=== PATIENT | female | born 1975 | race Caucasian/White ===

== ENCOUNTER → 2016-10-22 | Outpatient (CLI) | payer MEDICARE, OTHER ==
--- NOTE | 2016-10-25 09:43 | MM ---
Reason for exam: screening (asymptomatic). Baseline mammogram. History: Patient history of other cancer and is nulliparous. Physical Findings: Nurse did not find any significant physical abnormalities on exam. MG 3D Screening Mammo W/Cad Bilateral CC and MLO view(s) were taken. There are scattered fibroglandular densities. Finding: There are typically benign skin calcifications in both breasts. ASSESSMENT: Benign, BI-RAD 2 RECOMMENDATION: Routine screening mammogram of both breasts in 1 year.
== END | disposition home or self-care (01) ==
LOC: RADMAMWWP 15:02
PROVIDERS: ATTEND Internal Medicine
DX: Z12.31 Encounter for screening mammogram for malignant neoplasm of breast (principal)
CPT/HCPCS: 77063; G0202

== ENCOUNTER → 2017-03-18 | Outpatient (CLI) | payer MEDICARE, OTHER ==
--- NOTE | 2017-03-18 18:05 | US ---
EXAMINATION TYPE: US transvaginal DATE OF EXAM: 03/18/2017 COMPARISON: NONE CLINICAL HISTORY: N93.8 other spec abnorm vaginal bleeding. TECHNIQUE: Transvaginal (TV) Date of LMP: 02/26/2017 EXAM MEASUREMENTS: Uterus: 9.5 x 5.0 x 6.5 cm Endometrial Stripe: 1.3 cm Right Ovary: 2.4 x 2.2 x 1.3 cm Left Ovary: 3.0 x 1.8 x 1.9 cm 1. Uterus: Anteverted small hypoechoic area right lower measures 1.0 x 0.7 x 0.8 cm. 2. Endometrium: wnl 3. Right Ovary: wnl 4. Left Ovary: wnl 5. Bilateral Adnexa: wnl 6. Posterior cul-de-sac: no free fluid IMPRESSION: Negative transvaginal pelvic sonogram. No adnexal mass or free fluid. Normal endometrium.
== END | disposition home or self-care (01) ==
LOC: RADUSWWP 16:31
PROVIDERS: ATTEND Internal Medicine
DX: N93.8 Other specified abnormal uterine and vaginal bleeding (principal)
CPT/HCPCS: 76830

== ENCOUNTER → 2017-04-13 | Outpatient (CLI) | payer MEDICARE, OTHER ==
--- NOTE | 2017-04-14 08:48 | WWHP ---
DATE OF SERVICE: 04/13/17 CHIEF COMPLAINT: The patient is here for her routine gynecological exam and mammogram. HISTORY OF PRESENT ILLNESS: This is a 41-year-old G0, with an LMP of 03/27/17. The patient states it has been more than ten years since her last pelvic exam. She states here periods are regular every month but they have been progressively getting heavier especially over the last two years. They have gotten so heavy that she believes she has become anemic because of the bleeding. She states her periods are typically every 24 to 29 days and can last from 7 to 9 days. She states all but 2 days are very heavy. On heavy days , she can have to change her tampon up to every 15 minutes. She states they are also very crampy. She does not use anything for control. She does have history of infertility after 13 years of attempting . She did not undergo any treatment and is no longer interested in getting . PAST MEDICAL HISTORY: Anemia, gastroesophageal reflux disease, Type 2 diabetes. Elevated cholesterol. Chronic back problems. Degenerative disc disease. Fibromyalgia, chronic hypertension, obesity, migraine headaches, history of osteomyelitis and stenosis of the spine. Medications: 1. Famotidine 20 mg b.i.d. 2. Klor-Con 20 meq daily. 3. Furosemide 40 mg daily. 4. Metformin 1000 mg b.i.d. 5. Simvastatin 20 mg daily. 6. Tiazepam 5 mg b.i.d. prn. 7. Oxycodone 325/5 mg two tablets q.i.d. prn. 8. Clindamycin 300 mg q6 hours. Also over the counter medications include: 1. Vitamin D3 2000 mg daily. 2. Vitamin C 1000 mg daily. 3. Vitamin B complex daily. 4. Evening [place] oil 1000 mg daily. 5. Fish oil supplement 1200 mg daily. 6. Claritin 10 mg daily. 7. Slow FE iron supplement one daily. ALLERGIES: ASPIRIN, N-SAIDS, PENICILLIN, JACK INHIBITORS, KEFLEX, BIAXIN, BACTRIM , LATEX AND OTHER TYPES OF BLOOD PRESSURE MEDICATIONS. PAST SURGICAL HISTORY: Bone marrow biopsy as a child. 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 She also has heavy periods as above. She has no history of STDs. SOCIAL HISTORY: She admits to smoking one pack of cigarettes per day but denies alcohol and drug use. She is single but has been with her boyfriend for 23 years and lives with him. She is considered disabled. FAMILY HISTORY: Mother and grandmother have diabetes. She denies family history of cancer of the breast, uterus, ovaries or colon. REVIEW OF SYSTEMS: Weight has fluctuated and she has gained approximately 40 pounds over the last year. She denies respiratory, cardiac problems. GI: Occasional stomach upset on the Clindamycin which she is currently taking. PHYSICAL EXAM: Blood pressure 127/62. Height 5 feet 4 inches, weight 291 pounds. Temperature 96.2. Pulse 87. This is a well developed, obese white female who is alert and oriented times three in no acute distress. HEENT: is within normal limits. Neck is supple without mass or thyromegaly. Chest and lungs clear to auscultation. Heart is regular rate and rhythm. Breasts: without mass or discharge. Axillary exam is negative for adenopathy. Back negative for CVA tenderness. Abdomen is obese, soft and nontender without palpable masses. Pelvic exam, normal external genitalia. Cervix and vagina appears normal. There is no unusual discharge. There is no evidence of prolapse. The uterus is mid position, nongravid size and nontender. There are no palpable adnexal masses or tenderness. Bimanual examination is somewhat limited secondary to her size. Rectal exam refused by the patient. Extremities nontender. IMPRESSION: 1. A 41 year old premenopausal female with hypermenorrhea consisting of menses lasting 7 to 9 days with very heavy flow. 2. History of anemia possibly secondary to her hypermenorrhea. 3. Multiple medical problem. PLAN: 1. Pap smear was performed. 2. Self breast examination was discussed. 3. Mammogram was done 10/22/16 and was benign. She will plan on repeating this in one year. 4. The patient also had a pelvic ultrasound on 03/18/17 which was unremarkable. 5. We had a long discussion regarding options for her hypermenorrhea. We discussed medications including oral contraception, Meclofenamate sodium and Tranexamic acid. With her multiple medical problems, I do not think she is a good candidate for tranexamic acid or control pills because of the possible increase for blood clots. Because of her allergies for NSAID type medications, I do not feel she is a good candidate for Meclofenamate sodium. She states she had some type of anaphylactic reaction with NSAIDS. We have also discussed other options including Mirena IUD, endometrial ablation and hysterectomy. The ACOG frequently asked questions hand outs were given to the patient on heavy menstrual bleeding and the endometrial ablation procedure. All of her questions have been answered. She is considering the endometrial ablation. We have discussed how this would not be used as a control method and would be dangerous if she were to get after the procedure. 6. After she reviews the material, she will let me know if she is interested in the endometrial ablation or other type of treatment. If she desires endometrial ablation, she will be referred to a local media account executive for this. 7. She will return in one year and prn. 8. She will also keep a menstrual calender. MTDD
== END | disposition home or self-care (01) ==
LOC: WWCWWP 11:09
PROVIDERS: ATTEND Obstetrics & Gynecology
DX: Z01.419 Encounter for gynecological examination (general) (routine) without abnormal findings (principal)

== ENCOUNTER → 2017-06-03 | Outpatient (CLI) | payer MEDICARE, OTHER ==
[2017-06-03 16:28] LABS: Basophils # (A) 0.1 k/uL (0-0.2); Basophils % (A) 1 %; CH 26.5; CHCM 31.8; Eosinophils # (A) 0.3 k/uL (0-0.7); Eosinophils % (A) 3 %; HCT 39.4 % (34.0-46.0); HDW 2.87; HGB 12.4 gm/dL (11.4-16.0); Hypochromasia Slight; Luc % (Auto) 1; Lymphocytes # (A) 2.2 k/uL (1.0-4.8); Lymphocytes % (A) 24 %; MCH 26.4 pg (25.0-35.0); MCHC 31.5 g/dL (31.0-37.0); MCV 83.8 fL (80.0-100.0); Mean Platelet Volume 7.7; Monocytes # (A) 0.5 k/uL (0-1.0); Monocytes % (A) 5 %; Neutrophils # (A) 6.2 k/uL (1.3-7.7); Neutrophils % (A) 67 %; RDW 15.3 % (11.5-15.5); WBC 9.4 k/uL (3.8-10.6); WBC (Perox) 9.01
== END | disposition home or self-care (01) ==
LOC: LABWHC1 16:08
PROVIDERS: ATTEND Obstetrics & Gynecology Obstetrics
DX: Z01.812 Encounter for preprocedural laboratory examination (principal); D64.9 Anemia, unspecified; N92.0 Excessive and frequent menstruation with regular cycle
CPT/HCPCS: 36415; 85025

== ENCOUNTER 2017-06-21 08:30 | Day surgery (SDC) | payer MEDICARE, OTHER ==
[2017-06-15 14:02] VITALS: BMI 46.3
[~2017-06-21 08:30] MED LIST: LACTATED RINGERS 1,000 ML IV SCH; Pre Op ABX Message 1 EACH MISC MISCELLANE ONE
[2017-06-21] MEDS ORDERED: LIDOCAINE 1% 20 ML VIAL (10MG/ML) FOR IV START INTRADERMA ONE (09:09)
[2017-06-21] MEDS: ONDANSETRON 4 MG/2 ML VIAL IVP PRN ×2 (09:10→10:20)
[2017-06-21 09:16] LABS: Glucose,Whole Blood 145 mg/dL (75-99)
[2017-06-21] MEDS ORDERED: ACETAMINOPHEN PO PRN (09:29)
[2017-06-21] MEDS ORDERED: Acetaminophen-Codeine 300-30mg TAB PO PRN ×2 (09:29)
[2017-06-21] MEDS ORDERED: OXYCODONE HCL PO PRN (09:29)
[2017-06-21] MEDS ORDERED: PYRIDOXINE 50 MG PO SCH (09:30)
[2017-06-21] MEDS ORDERED: KETOROLAC 30 MG/ML 1 ML VIAL ONE (09:31)
[2017-06-21] MEDS ORDERED: PROPOFOL 10 MG/ML 20 ML VIAL IV ONE (09:31)
[2017-06-21] MEDS ORDERED: SUCCINYLCHOLINE CHLORIDE 100 MG/5 ML SYR IV ONE (09:31)
[2017-06-21] MEDS ORDERED: fentaNYL (PF) 50 MCG/ML 2 ML AMP ONE (09:31)
[2017-06-21] MEDS ORDERED: GLYCOPYRROLATE 0.2 MG/ML 2 ML VIAL ONE (09:31)
[2017-06-21] MEDS ORDERED: LIDOCAINE 1% INJ 10MG/ML (20 ML MDV) ONE (09:31)
[2017-06-21] MEDS ORDERED: MIDAZOLAM 2 MG/2 ML VIAL ONE (09:31)
--- NOTE | 2017-06-21 10:05 | P.OP ---
Date of Procedure: 06/21/17 Preoperative Diagnosis: Menorrhagia, anemia Postoperative Diagnosis: Same Procedure(s) Performed: Hysteroscopy, dilation and curettage, endometrial ablation, NovaSure Anesthesia: ABHAYA Surgeon: Tiffanie Conklin Estimated Blood Loss (ml): 10 IV fluids (ml): 300 Urine output (ml): 25 Pathology: other (Endometrial curettings) Condition: stable Disposition: PACU Indications for Procedure: Heavy menstrual bleeding, anemia Operative Findings: Normal appearing endometrial cavity, proliferative endometrium noted Description of Procedure: Where general anesthesia was obtained without difficulty by the anesthesia department. She was prepped and draped in the normal sterile fashion in the dorsal lithotomy position. With her catheter was then used to drain the bladder of clear yellow urine. A weighted speculum was placed in the posterior vaginal vault and the anterior lip of the cervix was visualized and grasped with a single-tooth tenaculum. The endocervical canal was then dilated to approximately 18-Colombian. Uterine sound was used to obtain a uterine length of 10 cm. The hysteroscope was then placed through the cervical os towards endometrial cavity the above-noted findings were visualized. A sharp curettage was then performed until gritty texture was noted in all 4 quadrants of the endometrial cavity. This was then sent off to pathology for analysis. The endometrial device NovaSure was then opened and operated according to rn charge's instruction. A uterine length of 6 with a 4.5 power of 149 for 60 seconds was noted after the cavity assessment was passed without difficulty. After the cycle but device was removed without difficulty. The double-tooth tenaculum was removed from the anterior lip of the cervix hemostasis was appreciated. Next Patient tolerated procedure well, all counts were correct x 2, PATIENT WAS TAKEN TO THE RECOVERY ROOM AWAKE AND IN STABLE CONDITION
[2017-06-21 10:21] VITALS: TEMP 97.8
[2017-06-21] MEDS: HYDROmorphone 0.5 MG/0.5 ML SYRINGE IVP PRN ×4 (10:25→10:56)
[2017-06-21 13:12] VITALS: RESP 16
[2017-06-21 13:13] VITALS: BP 144/84; PULSE 85
[2017-06-21] MEDS ORDERED: FAMOTIDINE 20 MG PO SCH (21:00)
[2017-06-21] MEDS ORDERED: DIAZEPAM 5 MG PO SCH (21:00)
[2017-06-21] MEDS ORDERED: DOXYCYCLINE 50 MG PO SCH (21:00)
[2017-06-21] MEDS ORDERED: NON-FORMULARY DRUG (Metformin Hcl [Metformin Hcl] 1,000 MG) PO SCH (21:00)
[2017-06-22] MEDS ORDERED: FUROSEMIDE 40 MG PO SCH (09:00)
[2017-06-22] MEDS ORDERED: POTASSIUM CHLORIDE 20 MEQ PO SCH (09:00)
[2017-06-22] MEDS ORDERED: ASCORBIC ACID 500 MG PO SCH (09:00)
[2017-06-22] MEDS ORDERED: EPA PO SCH (09:00)
[2017-06-22] MEDS ORDERED: CHOLECALCIFEROL 1000 UNIT PO SCH (09:00)
[2017-06-22] MEDS ORDERED: FISH OIL PO SCH (09:00)
[2017-06-22] MEDS ORDERED: EVENING PRIMROSE OIL 500 MG PO SCH (09:00)
[2017-06-22] MEDS ORDERED: NON-FORMULARY DRUG (Simvastatin [Simvastatin] 40 MG) PO SCH (09:00)
[2017-06-22] MEDS ORDERED: DHA PO SCH (09:00)
[2017-06-22] MEDS ORDERED: LORATADINE 5 MG PO SCH (09:00)
[2017-06-22] MEDS ORDERED: OMEGA PO SCH (09:00)
== END 2017-06-21 13:17 | disposition home or self-care (01) ==
LOC: OR 08:30
PROVIDERS: ATTEND Obstetrics & Gynecology Obstetrics
DX: N92.0 Excessive and frequent menstruation with regular cycle (principal); N85.8 Other specified noninflammatory disorders of uterus; I10 Essential (primary) hypertension; E78.5 Hyperlipidemia, unspecified; D64.9 Anemia, unspecified; K21.9 Gastro-esophageal reflux disease without esophagitis; E11.9 Type 2 diabetes mellitus without complications; F17.200 Nicotine dependence, unspecified, uncomplicated; Z79.84 Long term (current) use of oral hypoglycemic drugs; Z79.899 Other long term (current) drug therapy; Z88.0 Allergy status to penicillin; Z88.2 Allergy status to sulfonamides; Z88.8 Allergy status to other drugs, medicaments and biological substances; Z88.6 Allergy status to analgesic agent; Z88.1 Allergy status to other antibiotic agents; Z91.040 Latex allergy status; Z83.3 Family history of diabetes mellitus
CPT/HCPCS: 58563; 81025; 88305; J2250; J2405; J2001; J3010; J1885; J0330; J2704; J1170

== ENCOUNTER → 2018-02-28 | Outpatient (CLI) | payer MEDICARE, OTHER ==
[2018-03-01 02:21] LABS: Urine Alcohol Negative (Negative); Urine Barbiturate Negative (Negative); Urine Cocaine Negative (Negative); Urine Methadone Negative (Negative); Urine Opiates Negative (Negative); Urine Phencyclidine Negative (Negative)
== END | disposition home or self-care (01) ==
LOC: LABMAIN 17:46
PROVIDERS: ATTEND Internal Medicine
DX: F11.20 Opioid dependence, uncomplicated (principal)
CPT/HCPCS: 80306

== ENCOUNTER → 2018-11-20 | Outpatient (CLI) | payer MEDICARE, OTHER ==
[2018-11-20 16:48] LABS: HCT 45.3 % (34.0-46.0); HGB 14.6 gm/dL (11.4-16.0); MCH 28.1 pg (25.0-35.0); MCHC 32.2 g/dL (31.0-37.0); MCV 87.3 fL (80.0-100.0); Mean Platelet Volume 7.5; Platelet Count 308 k/uL (150-450); RDW 13.9 % (11.5-15.5); WBC 8.7 k/uL (3.8-10.6)
[2018-11-20 16:57] LABS: Anion Gap 11 mmol/L; Blood Urea Nitrogen 14 mg/dL (7-17); Calcium 9.6 mg/dL (8.4-10.2); Carbon Dioxide 29 mmol/L (22-30); Chloride 98 mmol/L (98-107); Glucose 295 mg/dL (74-99); Magnesium 1.7 mg/dL (1.6-2.3); Potassium 4.5 mmol/L (3.5-5.1); Sodium 138 mmol/L (137-145)
[2018-11-21 01:25] LABS: Hemoglobin A1C 9.4 % (4.0-6.0)
--- NOTE | 2018-11-21 13:48 | MM ---
Reason for exam: screening (asymptomatic). Last mammogram was performed 2 years and 1 month ago. History: Patient is postmenopausal, history of other cancer, and is nulliparous. Taking estrogen. Taking progesterone. Physical Findings: A clinical breast exam by your physician is recommended on an annual basis and results should be correlated with mammographic findings. MG 3D Screening Mammo W/Cad Bilateral CC and MLO view(s) were taken. Prior study comparison: October 22, 2016, bilateral MG 3d screening mammo w/cad. Benign appearing bilateral calcifications. No significant changes when compared with prior studies. ASSESSMENT: Benign, BI-RAD 2 RECOMMENDATION: Routine screening mammogram of both breasts in 1 year.
== END | disposition home or self-care (01) ==
LOC: RADMAMWWP 15:39
PROVIDERS: ATTEND Internal Medicine
DX: Z12.31 Encounter for screening mammogram for malignant neoplasm of breast (principal); E55.9 Vitamin D deficiency, unspecified; E78.5 Hyperlipidemia, unspecified; R53.83 Other fatigue; E11.42 Type 2 diabetes mellitus with diabetic polyneuropathy; K21.9 Gastro-esophageal reflux disease without esophagitis; I10 Essential (primary) hypertension
CPT/HCPCS: 36415; 77063; 77067; 80048; 82043; 82570; 83036; 83540; 83550; 83735; 84439; 84443; 85027

== ENCOUNTER → 2018-12-20 | Outpatient (CLI) | payer MEDICARE, OTHER ==
--- NOTE | 2018-12-21 12:02 | NM ---
EXAMINATION TYPE: NM hepatobiliary w EF DATE OF EXAM: 12/20/2018 COMPARISON: NONE HISTORY: Nausea and vomiting TECHNIQUE: After the intravenous administration of 4.7 mCi Tc 99m Mebrofenin hepatobiliary scintigrap hy is performed. Immediate images post injection. FINDINGS: There is satisfactory initial accumulation of tracer by the liver. The gallbladder is visualized wit hin 8 minutes. The small bowel activity is noted within 6 minutes. At one hour 8 ounces of oral ens ure plus is given to mimic CCK and gallbladder ejection fraction is calculated at 79 %, in the normal range. Therefore there is no scintigraphic evidence of cystic or common bile duct obstruction to reynoso ggest acute cholecystitis or gallbladder dyskinesia. IMPRESSION: Exam is within normal limits.
== END | disposition home or self-care (01) ==
LOC: RADNMMAIN 14:43
PROVIDERS: ATTEND Internal Medicine
DX: R10.84 Generalized abdominal pain (principal)
CPT/HCPCS: 78226; A9537

== ENCOUNTER → 2020-05-28 | Outpatient (CLI) | payer MEDICARE, OTHER ==
--- NOTE | 2020-05-29 14:48 | MM ---
Reason for exam: screening (asymptomatic). Last mammogram was performed 1 year and 6 months ago. History: Patient is postmenopausal, history of other cancer, and is nulliparous. Taking estrogen. Taking progesterone. Physical Findings: A clinical breast exam by your physician is recommended on an annual basis and results should be correlated with mammographic findings. MG 3D Screening Mammo W/Cad Bilateral CC and MLO view(s) were taken. Prior study comparison: November 20, 2018, bilateral MG 3d screening mammo w/cad. October 22, 2016, bilateral MG 3d screening mammo w/cad. There are scattered fibroglandular densities. Stable benign calcifications. There is no discrete abnormality. No significant changes when compared with prior studies. ASSESSMENT: Benign, BI-RAD 2 RECOMMENDATION: Routine screening mammogram of both breasts in 1 year.
== END | disposition home or self-care (01) ==
LOC: RADMAMWWP 15:42
PROVIDERS: ATTEND Nurse Practitioner Adult Health
DX: Z12.31 Encounter for screening mammogram for malignant neoplasm of breast (principal)
CPT/HCPCS: 77063; 77067

== ENCOUNTER → 2020-08-14 | Outpatient (CLI) | payer MEDICARE, OTHER | END | disposition home or self-care (01) | LOC: LABWHC1 16:16 | PROVIDERS: ATTEND Nurse Practitioner Adult Health | DX: J06.9 Acute upper respiratory infection, unspecified (principal) ==

== ENCOUNTER 2020-10-08 15:40 | Emergency (ER) | payer MEDICARE, OTHER ==
[2020-10-08 15:46] VITALS: TEMP 98.4
--- NOTE | 2020-10-08 16:15 | ED ---
General Adult HPI - General Chief complaint: Extremity Problem,Nontraumatic Stated complaint: body swelling Time Seen by Provider: 10/08/20 15:52 Source: patient, RN notes reviewed, old records reviewed Mode of arrival: ambulatory Limitations: no limitations - History of Present Illness Initial comments: 44-year-old female presenting for generalized swelling, lower extremity swelling. Symptoms have progressed, she typically is on Lasix 40 mg to take 80 mg of Lasix today with some improvement. She's had increased urine output after her dose of Lasix today. She has no history of heart failure. She does use Lasix both for peripheral edema and hypertension. She's had no other antihypertensive medications. She does state that she feels puffy in both her face and her hands as well. No chest pain, no dyspnea, no fever. - Related Data Home Medications Medication Instructions Recorded Confirmed Furosemide [Lasix] 80 mg PO DAILY 06/15/17 10/08/20 Loratadine [Claritin] 10 mg PO DAILY 06/15/17 10/08/20 Potassium Chloride [Klor-Con 20] 20 meq PO DAILY 06/15/17 10/08/20 Simvastatin 40 mg PO HS 06/15/17 10/08/20 Cholecalciferol [Vitamin D3 (25 125 mcg PO AC-SUPPER 10/08/20 10/08/20 Mcg = 1000 Iu)] Diazepam [Valium] 10 mg PO TID PRN 10/08/20 10/08/20 Femhrt 0.5-2.5mg 1 tab PO HS 10/08/20 10/08/20 Gabapentin 300 mg PO TID 10/08/20 10/08/20 Levothyroxine Sodium [Synthroid] 50 mcg PO DAILY 10/08/20 10/08/20 [place]-3 Fatty Acids/Fish Oil [Fish 1 cap PO AC-SUPPER 10/08/20 10/08/20 Oil 1,000 mg Softgel] Ubidecarenone [Co Q-10] 400 mg PO AC-SUPPER 10/08/20 10/08/20 glipiZIDE XL [Glucotrol Xl] 10 mg PO AC-SUPPER 10/08/20 10/08/20 oxyCODONE-APAP 10-325MG [Percocet 1 tab PO QID PRN 01/27/21 01/27/21 10-325 mg] sitaGLIPtin PHOS/metFORMIN HCL 1 tab PO BID 10/08/20 10/08/20 [Janumet Xr 100-1,000 mg Tablet] Allergies Allergy/AdvReac Type Severity Reaction Status Date / Time JACK Inhibitors Allergy Anaphylaxis Verified 10/08/20 16:37 aspirin Allergy Rash/Hives Verified 10/08/20 16:37 cephalexin [From Keflex] Allergy Rapid Verified 10/08/20 16:37 Heart Rate clarithromycin [From Biaxin] Allergy Rash/Hives Verified 10/08/20 16:37 latex Allergy Rash/Hives Verified 10/08/20 16:37 Penicillins Allergy Rash/Hives Verified 10/08/20 16:37 Review of Systems ROS Statement: Those systems with pertinent positive or pertinent negative responses have been documented in the HPI. ROS Other: All systems not noted in ROS Statement are negative. Past Medical History Past Medical History: Diabetes Mellitus, Fibromyalgia, GERD/Reflux, Hyperlipidemia, Hypertension, Osteoarthritis (OA) Additional Past Medical History / Comment(s): DDD, Osteomyelitis & hx. of Migraines. Has a cold and is taking antbx. currently for this. History of Any Multi-Drug Resistant Organisms: None Reported Past Surgical History: Orthopedic Surgery Additional Past Surgical History / Comment(s): L leg surgery. Past Anesthesia/Blood Transfusion Reactions: Postoperative Nausea & Vomiting (PONV) Additional Past Anesthesia/Blood Transfusion Reaction / Comment(s): Hard to wake up. Past Psychological History: No Psychological Hx Reported Smoking Status: Current every day smoker Past Alcohol Use History: None Reported Past Drug Use History: Marijuana - Past Family History Mother Family Medical History: No Reported History General Exam Limitations: no limitations General appearance: alert, in no apparent distress Head exam: Present: atraumatic, normocephalic Eye exam: Present: normal appearance, PERRL ENT exam: Present: normal exam Neck exam: Present: normal inspection. Absent: tenderness, meningismus Respiratory exam: Present: normal lung sounds bilaterally. Absent: respiratory distress, wheezes, rales Cardiovascular Exam: Present: regular rate, normal rhythm GI/Abdominal exam: Present: soft. Absent: distended, tenderness, guarding Extremities exam: Present: pedal edema, calf tenderness (Patient has bilateral lower extremity swelling, there is minimal erythema bilaterally) Neurological exam: Present: alert, oriented X3, CN II-XII intact. Absent: motor sensory deficit Psychiatric exam: Present: normal affect, normal mood Skin exam: Present: warm, dry, intact, erythema. Absent: cyanosis, diaphoretic Course Vital Signs 10/08/20 10/08/20 15:41 17:42 Temperature 98.4 F Pulse Rate 92 86 Respiratory 20 18 Rate Blood Pressure 147/92 133/71 O2 Sat by Pulse 97 100 Oximetry EKG Findings - EKG Comments: EKG Findings:: EKG: Normal sinus rhythm, prolonged QT rate of 95, DE interval 152, QRS duration 88, QTC [address] segment elevation. Medical Decision Making - Medical Decision Making 44-year-old female with lower extremity edema. Lungs are clear to auscultation, and normal oxygenation on room air. Chest x-ray negative for focal pneumonia, no pleural effusion worse signs of congestive heart failure. Ultrasound performed of both legs negative for DVT. There is normal CBC, normal white lites, normal kidney function, elevated blood glucose of 200 otherwise no acute abnormalities. Negative troponin, negative BNP. Patient given 1 dose of IV Lasix. She will continue to follow with her primary care physician regarding peripheral edema. - Lab Data Result diagrams: 10/08/20 16:54 10/08/20 16:54 Lab Results 10/08/20 10/08/20 10/08/20 Range/Units 16:54 16:54 16:54 WBC 9.4 (3.8-10.6) k/uL RBC 5.16 (3.80-5.40) m/uL Hgb 15.1 (11.4-16.0) gm/dL Hct 44.3 (34.0-46.0) % MCV 85.9 (80.0-100.0) fL MCH 29.3 (25.0-35.0) pg MCHC 34.1 (31.0-37.0) g/dL RDW 13.6 (11.5-15.5) % Plt Count 277 (150-450) k/uL MPV 7.6 Neutrophils % 62 % Lymphocytes % 29 % Monocytes % 4 % Eosinophils % 4 % Basophils % 1 % Neutrophils # 5.8 (1.3-7.7) k/uL Lymphocytes # 2.7 (1.0-4.8) k/uL Monocytes # 0.4 (0-1.0) k/uL Eosinophils # 0.3 (0-0.7) k/uL Basophils # 0.1 (0-0.2) k/uL PT 10.4 (9.0-12.0) sec INR 1.0 (<1.2) APTT 24.0 (22.0-30.0) sec Sodium 135 L (137-145) mmol/L Potassium 4.4 (3.5-5.1) mmol/L Chloride 99 (98-107) mmol/L Carbon Dioxide 27 (22-30) mmol/L Anion Gap 9 mmol/L BUN 9 (7-17) mg/dL Creatinine 0.78 (0.52-1.04) mg/dL Est GFR (CKD-EPI)AfAm >90 (>60 ml/min/1.73 sqM) Est GFR (CKD-EPI)NonAf >90 (>60 ml/min/1.73 sqM) Glucose 220 H (74-99) mg/dL Plasma Lactic Acid Andrés (0.7-2.0) mmol/L Calcium 9.2 (8.4-10.2) mg/dL Magnesium 1.8 (1.6-2.3) mg/dL Total Bilirubin 0.3 (0.2-1.3) mg/dL AST 42 H (14-36) U/L ALT 36 H (4-34) U/L Alkaline Phosphatase 53 (38-126) U/L Troponin I (0.000-0.034) ng/mL NT-Pro-B Natriuret Pep pg/mL Total Protein 7.3 (6.3-8.2) g/dL Albumin 4.1 (3.5-5.0) g/dL Urine Color Urine Appearance (Clear) Urine pH (5.0-8.0) Ur Specific [place] (1.001-1.035) Urine Protein (Negative) Urine Glucose (UA) (Negative) Urine Ketones (Negative) Urine Blood (Negative) Urine Nitrite (Negative) Urine Bilirubin (Negative) Urine Urobilinogen (<2.0) mg/dL Ur Leukocyte Esterase (Negative) 10/08/20 10/08/20 10/08/20 Range/Units 16:54 16:54 16:54 WBC (3.8-10.6) k/uL RBC (3.80-5.40) m/uL Hgb (11.4-16.0) gm/dL Hct (34.0-46.0) % MCV (80.0-100.0) fL MCH (25.0-35.0) pg MCHC (31.0-37.0) g/dL RDW (11.5-15.5) % Plt Count (150-450) k/uL MPV Neutrophils % % Lymphocytes % % Monocytes % % Eosinophils % % Basophils % % Neutrophils # (1.3-7.7) k/uL Lymphocytes # (1.0-4.8) k/uL Monocytes # (0-1.0) k/uL Eosinophils # (0-0.7) k/uL Basophils # (0-0.2) k/uL PT (9.0-12.0) sec INR (<1.2) APTT (22.0-30.0) sec Sodium (137-145) mmol/L Potassium (3.5-5.1) mmol/L Chloride (98-107) mmol/L Carbon Dioxide (22-30) mmol/L Anion Gap mmol/L BUN (7-17) mg/dL Creatinine (0.52-1.04) mg/dL Est GFR (CKD-EPI)AfAm (>60 ml/min/1.73 sqM) Est GFR (CKD-EPI)NonAf (>60 ml/min/1.73 sqM) Glucose (74-99) mg/dL Plasma Lactic Acid Andrés 2.0 (0.7-2.0) mmol/L Calcium (8.4-10.2) mg/dL Magnesium (1.6-2.3) mg/dL Total Bilirubin (0.2-1.3) mg/dL AST (14-36) U/L ALT (4-34) U/L Alkaline Phosphatase (38-126) U/L Troponin I <0.012 (0.000-0.034) ng/mL NT-Pro-B Natriuret Pep 66 pg/mL Total Protein (6.3-8.2) g/dL Albumin (3.5-5.0) g/dL Urine Color Urine Appearance (Clear) Urine pH (5.0-8.0) Ur Specific [place] (1.001-1.035) Urine Protein (Negative) Urine Glucose (UA) (Negative) Urine Ketones (Negative) Urine Blood (Negative) Urine Nitrite (Negative) Urine Bilirubin (Negative) Urine Urobilinogen (<2.0) mg/dL Ur Leukocyte Esterase (Negative) 10/08/20 Range/Units 17:47 WBC (3.8-10.6) k/uL RBC (3.80-5.40) m/uL Hgb (11.4-16.0) gm/dL Hct (34.0-46.0) % MCV (80.0-100.0) fL MCH (25.0-35.0) pg MCHC (31.0-37.0) g/dL RDW (11.5-15.5) % Plt Count (150-450) k/uL MPV Neutrophils % % Lymphocytes % % Monocytes % % Eosinophils % % Basophils % % Neutrophils # (1.3-7.7) k/uL Lymphocytes # (1.0-4.8) k/uL Monocytes # (0-1.0) k/uL Eosinophils # (0-0.7) k/uL Basophils # (0-0.2) k/uL PT (9.0-12.0) sec INR (<1.2) APTT (22.0-30.0) sec Sodium (137-145) mmol/L Potassium (3.5-5.1) mmol/L Chloride (98-107) mmol/L Carbon Dioxide (22-30) mmol/L Anion Gap mmol/L BUN (7-17) mg/dL Creatinine (0.52-1.04) mg/dL Est GFR (CKD-EPI)AfAm (>60 ml/min/1.73 sqM) Est GFR (CKD-EPI)NonAf (>60 ml/min/1.73 sqM) Glucose (74-99) mg/dL Plasma Lactic Acid Andrés (0.7-2.0) mmol/L Calcium (8.4-10.2) mg/dL Magnesium (1.6-2.3) mg/dL Total Bilirubin (0.2-1.3) mg/dL AST (14-36) U/L ALT (4-34) U/L Alkaline Phosphatase (38-126) U/L Troponin I (0.000-0.034) ng/mL NT-Pro-B Natriuret Pep pg/mL Total Protein (6.3-8.2) g/dL Albumin (3.5-5.0) g/dL Urine Color Light Yellow Urine Appearance Clear (Clear) Urine pH 6.0 (5.0-8.0) Ur Specific [place] 1.009 (1.001-1.035) Urine Protein Negative (Negative) Urine Glucose (UA) 1+ H (Negative) Urine Ketones Negative (Negative) Urine Blood Negative (Negative) Urine Nitrite Negative (Negative) Urine Bilirubin Negative (Negative) Urine Urobilinogen <2.0 (<2.0) mg/dL Ur Leukocyte Esterase Negative (Negative) Disposition Clinical Impression: Peripheral edema Disposition: HOME SELF-CARE Condition: Good Instructions (If sedation given, give patient instructions): Leg Edema (ED) Is patient prescribed a controlled substance at d/c from ED?: No Referrals: Inge Cornell NPC [Primary Care Provider] - 1-2 days Time of Disposition: 18:15
[2020-10-08 17:04] LABS: Basophils # (A) 0.1 k/uL (0-0.2); Basophils % (A) 1 %; Eosinophils # (A) 0.3 k/uL (0-0.7); Eosinophils % (A) 4 %; HCT 44.3 % (34.0-46.0); HGB 15.1 gm/dL (11.4-16.0); Lymphocytes # (A) 2.7 k/uL (1.0-4.8); Lymphocytes % (A) 29 %; MCH 29.3 pg (25.0-35.0); MCHC 34.1 g/dL (31.0-37.0); MCV 85.9 fL (80.0-100.0); Mean Platelet Volume 7.6; Monocytes # (A) 0.4 k/uL (0-1.0); Monocytes % (A) 4 %; Neutrophils # (A) 5.8 k/uL (1.3-7.7); Neutrophils % (A) 62 %; Platelet Count 277 k/uL (150-450); RBC 5.16 m/uL (3.80-5.40); RDW 13.6 % (11.5-15.5); WBC 9.4 k/uL (3.8-10.6)
--- NOTE | 2020-10-08 17:10 | XR ---
EXAMINATION TYPE: XR chest 2V DATE OF EXAM: 10/08/2020 COMPARISON: NONE HISTORY: Difficulty breathing TECHNIQUE: 2 views FINDINGS: Heart and mediastinum are normal. Lungs are clear. Diaphragm is normal. Bony thorax is inta ct. There are chest leads. IMPRESSION: Normal chest.
[2020-10-08 17:12] LABS: ALT 36 U/L (4-34); AST 42 U/L (14-36); African American GFR (CKD) >90 (>60 ml/min/1.73 sqM); Albumin 4.1 g/dL (3.5-5.0); Alkaline Phosphatase 53 U/L (38-126); Anion Gap 9 mmol/L; Blood Urea Nitrogen 9 mg/dL (7-17); Calcium 9.2 mg/dL (8.4-10.2); Carbon Dioxide 27 mmol/L (22-30); Chloride 99 mmol/L (98-107); Glucose 220 mg/dL (74-99); Magnesium 1.8 mg/dL (1.6-2.3); Non-African American GFR(CKD) >90 (>60 ml/min/1.73 sqM); Potassium 4.4 mmol/L (3.5-5.1); Sodium 135 mmol/L (137-145); Total Bilirubin 0.3 mg/dL (0.2-1.3); Total Protein 7.3 g/dL (6.3-8.2)
[2020-10-08 17:13] LABS: Prothrombin Time 10.4 sec (9.0-12.0)
[2020-10-08 17:43] VITALS: BP 133/71; PULSE 86; RESP 18
--- NOTE | 2020-10-08 17:48 | US ---
EXAMINATION TYPE: US venous doppler duplex LE DATE OF EXAM: 10/08/2020 5:38 PM COMPARISON: NONE CLINICAL HISTORY: dvt?. Pain and swelling x 1.5 hours. No hx of DVT. Patient does not take blood thin ners. SIDE PERFORMED: Bilateral TECHNIQUE: The lower extremity deep venous system is examined utilizing real time linear array sonog rachelle with graded compression, doppler sonography and color-flow sonography. VESSELS IMAGED: Common Femoral Vein Deep Femoral Vein Greater Saphenous Vein * Femoral Vein Popliteal Vein Small Saphenous Vein * Proximal Calf Veins (* superficial vessels) Slightly limited due to patient body habitus and edema. Right Leg: No evidence of DVT in veins imaged at this time from prox calf veins to CFV. Left Leg: No evidence of DVT in veins imaged at this time from prox calf veins to CFV. IMPRESSION: No evidence of deep vein thrombosis in both legs.
[2020-10-08 17:55] LABS: Appearance,Urine Clear (Clear); Bilirubin,Urine Negative (Negative); Blood,Urine Negative (Negative); Color,Urine Light Yellow; Glucose,Urine (UA) 1+ (Negative); Ketones,Urine Negative (Negative); Leukocyte Esterase,Urine Negative (Negative); Nitrite,Urine Negative (Negative); Protein,Urine Negative (Negative); Specific Gravity,Urine 1.009 (1.001-1.035); Urobilinogen,Urine <2.0 mg/dL (<2.0)
[2020-10-08] MEDS ORDERED: FUROSEMIDE 10 MG/ML 4 ML VIAL IV STA (18:00)
== END 2020-10-08 18:32 | disposition home or self-care (01) ==
LOC: EC 15:40
DX: R60.0 Localized edema (principal); E11.9 Type 2 diabetes mellitus without complications; E78.5 Hyperlipidemia, unspecified; I10 Essential (primary) hypertension; K21.9 Gastro-esophageal reflux disease without esophagitis; F17.200 Nicotine dependence, unspecified, uncomplicated; Z79.890 Hormone replacement therapy; Z79.899 Other long term (current) drug therapy; Z79.84 Long term (current) use of oral hypoglycemic drugs; Z88.0 Allergy status to penicillin; Z88.6 Allergy status to analgesic agent; Z88.1 Allergy status to other antibiotic agents; Z91.040 Latex allergy status; Z91.048 Other nonmedicinal substance allergy status
CPT/HCPCS: 36415; 93005; 83880; 80053; 83605; 83735; 84484; 85025; 85610; 85730; 81003; 71046; 93970; 99284; 96374; J1940

== ENCOUNTER → 2020-10-31 | Outpatient (CLI) | payer MEDICARE, OTHER ==
--- NOTE | 2020-11-01 06:56 | XR ---
EXAMINATION TYPE: XR abdomen complete w decub DATE OF EXAM: 10/31/2020 HISTORY: Pain. Technique: 4 views of the abdomen are submitted. Comparison: None. Findings: There is no convincing evidence of pneumoperitoneum. The Bowel gas pattern is nonspecific and nonobstructive. No sizable air-fluid levels are seen. No mass effects are noted. No renal calcifications are identified. IMPRESSION: 1. Nonspecific nonobstructive bowel gas pattern
== END | disposition home or self-care (01) ==
LOC: RADXRMAIN 15:02
PROVIDERS: ATTEND Nurse Practitioner
DX: K59.09 Other constipation (principal)
CPT/HCPCS: 74021

== ENCOUNTER 2020-11-04 07:04 | Day surgery (SDC) | payer MEDICARE, OTHER ==
[~2020-11-04 07:04] MED LIST changes: +LIDOCAINE 1% (10MG/ML) FOR IV START INTRADERMA PRN; -Pre Op ABX Message 1 EACH MISC MISCELLANE ONE
[2020-11-04 07:24] VITALS: RESP 16; TEMP 97.2
[2020-11-04 07:32] LABS: Glucose,Whole Blood 167 mg/dL (75-99)
[2020-11-04] MEDS ORDERED: ONDANSETRON 4 MG/2 ML VIAL ONE (07:32)
[2020-11-04] MEDS ORDERED: ONDANSETRON 4 MG/2 ML VIAL IVP ONE (07:33)
[2020-11-04] MEDS ORDERED: PROPOFOL 10 MG/ML 20 ML VIAL IV ONE (07:42)
--- NOTE | 2020-11-04 08:04 | P.PCN ---
Date of Procedure: 11/04/20 Description of Procedure: BRIEF HISTORY: Patient is a 44-year-old female presenting for outpatient esophagogastroduodenoscopy for evaluation of epigastric abdominal pain. The patient was seen in the GI clinic inserted on omeprazole therapy. She denies any signs or symptoms of GI bleeding. PROCEDURE PERFORMED: Esophagogastroduodenoscopy with biopsy. PREOPERATIVE DIAGNOSIS: Epigastric abdominal pain. ESTIMATED BLOOD LOSS: Minimal. IV sedation per anesthesia. PROCEDURE: After informed consent was obtained, the patient was brought into the endoscopy unit. IV sedation was administered by Anesthesia under continuous monitoring. Initially the Olympus GIF-190 video endoscope was inserted into the mouth. Esophagus intubated without any difficulty. It was gradually advanced into the stomach and duodenum and carefully examined. The bulb and the second part of the duodenum appeared normal, with biopsies taken to rule out celiac sprue. The scope at this time was withdrawn to the stomach, adequately insufflated with air, and upon careful examination, mucosa of the antrum, body, cardia and the fundus appeared normal, except for some mild punctate and linear erythema in the antrum and body suggestive of mild gastritis with biopsies taken. The scope was then withdrawn into the esophagus. The GE junction was located at 39 cm from the incisors, with biopsies. The esophagus appeared normal. There were no erosions or ulcerations seen and the patient tolerated the procedure well. IMPRESSION: 1. Mild gastritis. 2. Biopsies of the antrum and body, duodenum and GE junction. RECOMMENDATIONS: The findings of this examination were discussed with the patient and her family. Okay to resume diet. Okay to resume medications. Await pathology from biopsies. Follow up in the GI clinic as scheduled.
[2020-11-04 08:06] VITALS: PULSE 80
[2020-11-04 08:20] VITALS: BP 121/76
== END 2020-11-04 08:51 | disposition home or self-care (01) ==
LOC: ORWHC2ENDO 07:04
PROVIDERS: ATTEND Internal Medicine
DX: K31.9 Disease of stomach and duodenum, unspecified (principal); I10 Essential (primary) hypertension; E78.5 Hyperlipidemia, unspecified; E11.9 Type 2 diabetes mellitus without complications; E66.9 Obesity, unspecified; Z68.42 Body mass index [BMI] 45.0-49.9, adult; Z98.890 Other specified postprocedural states; M89.9 Disorder of bone, unspecified; Z79.84 Long term (current) use of oral hypoglycemic drugs; Z79.890 Hormone replacement therapy; Z79.899 Other long term (current) drug therapy; Z88.8 Allergy status to other drugs, medicaments and biological substances; Z88.6 Allergy status to analgesic agent; Z88.1 Allergy status to other antibiotic agents; Z91.040 Latex allergy status; Z88.0 Allergy status to penicillin; Z85.830 Personal history of malignant neoplasm of bone
CPT/HCPCS: 81025; 88305; 43239; J2405; J2704

== ENCOUNTER → 2021-02-20 | Outpatient (CLI) | payer MEDICARE, OTHER | END | disposition home or self-care (01) | LOC: LABWHC1 15:30 | PROVIDERS: ATTEND Internal Medicine | DX: Z20.822 Contact with and (suspected) exposure to COVID-19 (principal); R09.81 Nasal congestion; R51.9 Headache, unspecified | CPT/HCPCS: U0003; C9803; U0005 ==

== ENCOUNTER 2022-04-04 19:23 | Emergency (ER) | payer MEDICARE, OTHER ==
--- NOTE | 2022-04-04 20:04 | XR ---
EXAMINATION TYPE: XR Hip Complete LT DATE OF EXAM: 04/04/2022 7:59 PM INDICATION: Patient age:Female; 46 years old; Reason for study: hip pain; COMPARISON: None. TECHNIQUE: The left hip was examined in the frontal and lateral projections. FINDINGS: No evidence of any acute osseous pathology, joint dislocation, or soft tissue swelling. IMPRESSION: No acute osseous pathology.
--- NOTE | 2022-04-04 20:08 | XR ---
EXAMINATION TYPE: XR lumbar spine 2 or 3V DATE OF EXAM: 04/04/2022 CLINICAL HISTORY: pain TECHNIQUE: Three views of the lumbar spine are submitted. COMPARISON: Abdominal radiograph 10/31/2020. FINDINGS: There are 5 lumbar type vertebral bodies identified. No evidence of acute fracture or dislocation. M ild dextroscoliotic curvature and straightening of the normal lumbar lordosis of the lumbar spine. Ve rtebral body heights are within normal limits. Mild multilevel degenerative changes of the visualize d lumbar spine most pronounced at L5-S1 with disc space narrowing, endplate sclerosis, and anterior o steophytosis. The overlying soft tissue appears unremarkable. IMPRESSION: * No acute fracture or dislocation is seen in the lumbar spine. * Mild degenerative disc disease.
[2022-04-04] MEDS ORDERED: diazePAM 5 MG TAB PO STA (21:42)
[2022-04-04] MEDS ORDERED: ONDANSETRON ODT 4 MG TAB PO STA (21:42)
[2022-04-04] MEDS ORDERED: HYDROmorphone 1 MG/ML 1 ML SYRINGE IM STA (21:42)
--- NOTE | 2022-04-04 22:26 | ED ---
General Adult HPI - General Chief complaint: Back Pain/Injury Stated complaint: Spinal/hip injury Time Seen by Provider: 04/04/22 20:58 Source: patient Mode of arrival: wheelchair Limitations: no limitations - History of Present Illness Initial comments: This is a 46-year-old female who presents to the emergency department for evaluation of low back pain that radiates to the left hip. Patient reports a history of chronic back pain and has taken Percocet as needed for years. States pain was exacerbated a couple weeks ago after a period of decreased activity. States she was able to minimize discomfort with rest, however it again worsened 2 days ago after bending over to reach in a laundry basket. Patient denies any injury or trauma. No foot drop, loss of bowel or bladder control, or saddle anesthesia. States she is out of her pain medication and is scheduled to see pain management on April 15. No other complaints at this time. - Related Data Home Medications Medication Instructions Recorded Confirmed Furosemide [Lasix] 80 mg PO 1200 06/15/17 10/30/20 Loratadine [Claritin] 10 mg PO 1200 06/15/17 10/30/20 Potassium Chloride [Klor-Con 20] 20 meq PO 1200 06/15/17 10/30/20 Simvastatin 40 mg PO HS 06/15/17 10/30/20 Cholecalciferol [Vitamin D3 (25 125 mcg PO AC-SUPPER 10/08/20 10/30/20 Mcg = 1000 Iu)] Femhrt 0.5-2.5mg 1 tab PO HS 10/08/20 10/30/20 Gabapentin 300 mg PO TID 10/08/20 10/30/20 Levothyroxine Sodium [Synthroid] 50 mcg PO 1200 10/08/20 10/30/20 [place]-3 Fatty Acids/Fish Oil [Fish 1 cap PO AC-SUPPER 10/08/20 10/30/20 Oil 1,000 mg Softgel] Ubidecarenone [Co Q-10] 400 mg PO AC-SUPPER 10/08/20 10/30/20 diazePAM [Valium] 10 mg PO TID PRN 10/08/20 10/30/20 glipiZIDE XL [Glucotrol Xl] 10 mg PO AC-SUPPER 10/08/20 10/30/20 oxyCODONE-APAP 10-325MG [Percocet 1 tab PO QID PRN 10/08/20 10/30/20 10-325 mg] sitaGLIPtin PHOS/metFORMIN HCL 1 tab PO BID 10/08/20 10/30/20 [Janumet Xr 100-1,000 mg Tablet] Docusate [Colace] 200 mg PO DAILY 10/30/20 10/30/20 Psyllium Husk 100% [Metamucil 6 gm PO DAILY 10/30/20 10/30/20 Packet] Previous Rx's Medication Instructions Recorded oxyCODONE-APAP 10-325MG [Percocet 1 tab PO Q6HR PRN 3 Days #12 tab 04/04/22 10-325 mg] Allergies Allergy/AdvReac Type Severity Reaction Status Date / Time JACK Inhibitors Allergy Anaphylaxis Verified 11/04/20 07:15 aspirin Allergy Rash/Hives Verified 11/04/20 07:15 cephalexin [From Keflex] Allergy Rapid Verified 11/04/20 07:15 Heart Rate clarithromycin [From Biaxin] Allergy Rash/Hives Verified 11/04/20 07:15 latex Allergy Rash/Hives Verified 11/04/20 07:15 metoclopramide [From Reglan] Allergy Anaphylaxis Verified 11/04/20 07:33 Penicillins Allergy Rash/Hives Verified 11/04/20 07:15 Review of Systems ROS Statement: Those systems with pertinent positive or pertinent negative responses have been documented in the HPI. ROS Other: All systems not noted in ROS Statement are negative. Past Medical History Past Medical History: Diabetes Mellitus, Fibromyalgia, GERD/Reflux, Hyperlipidemia, Hypertension, Osteoarthritis (OA) Additional Past Medical History / Comment(s): unable to have regular bowel movements, constipation up to 9 days without bowel movement, DDD, Osteomyelitis & hx. of Migraines. History of Any Multi-Drug Resistant Organisms: None Reported Past Surgical History: Back Surgery, Orthopedic Surgery Additional Past Surgical History / Comment(s): L leg surgery. Past Anesthesia/Blood Transfusion Reactions: Family History of Problems w/ Anesthesia, Postoperative Nausea & Vomiting (PONV) Additional Past Anesthesia/Blood Transfusion Reaction / Comment(s): Hard to wake up, mom has PONV Smoking Status: Current every day smoker - Past Family History Mother Family Medical History: No Reported History General Exam Limitations: no limitations General appearance: alert, in no apparent distress (Well-developed, well- nourished female in no acute distress, though does appear uncomfortable. Initial temperature 97.8, pulse 74, respirations 18, blood pressure 127/83, pulse ox 97% on room air.) Neck exam: Present: normal inspection. Absent: tenderness, meningismus, lymphadenopathy Respiratory exam: Present: normal lung sounds bilaterally. Absent: respiratory distress, wheezes, rales, rhonchi, stridor Cardiovascular Exam: Present: regular rate, normal rhythm, normal heart sounds. Absent: systolic murmur, diastolic murmur, rubs, gallop, clicks GI/Abdominal exam: Present: soft, normal bowel sounds. Absent: distended, tenderness, guarding, rebound, rigid Left Hip exam: Present: normal inspection. Absent: full ROM (Decreased range of motion due to pain), tenderness, swelling, external rotation, internal rotation, shortening Neurovascular tendon exam: Present: no vascular compromise. Absent: pulse deficit, abnormal cap refill Back exam: Present: normal inspection, muscle spasm, paraspinal tenderness (Nonlocalized lumbar paraspinal tenderness). Absent: full ROM (Decreased range of motion baseline for patient.) Expanded Back exam: Absent: saddle anesthesia Back exam: Negative Straight Leg Raising: Left, Right Neurological exam: Present: alert, oriented X3, CN II-XII intact Psychiatric exam: Present: normal affect, normal mood Skin exam: Present: warm, dry, intact, normal color. Absent: rash Course Vital Signs 04/04/22 04/04/22 19:29 22:44 Temperature 97.8 F 98.6 F Pulse Rate 94 83 Respiratory 18 16 Rate Blood Pressure 127/83 135/91 O2 Sat by Pulse 97 97 Oximetry Medical Decision Making - Medical Decision Making This is a 46-year-old female with chronic back pain who presents to the emergency department for evaluation of low back pain that radiates to the left hip. Upon exam, patient appears moderately uncomfortable but is nontoxic in appearance. She has pain with repositioning and spasmodic discomfort. No loss of bowel or bladder control, saddle anesthesia, or foot drop. Imaging is negative for any acute finding. Patient is given Dilaudid and Valium with improvement. She will be prescribed a short course of Percocet as per her previous home regimen and instructed to follow up with pain management as scheduled next week. Return parameters were discussed in detail. Patient ve rbalizes understanding and agrees with this plan. Attending: Velma. - Radiology Data Radiology results: report reviewed, image reviewed X-ray of the lumbar spine was obtained. Report was reviewed in its entirety. Impression per Dr. Lee is no acute fracture or dislocation is seen in the lumbar spine. Mild degenerative disc disease. X-ray of the left hip was obtained. Report was reviewed in its entirety. Impression per Dr. Lee is no acute osseous pathology. Disposition Clinical Impression: Chronic back pain Disposition: HOME SELF-CARE Condition: Stable Instructions (If sedation given, give patient instructions): Chronic Back Pain (DC) Additional Instructions: Follow up with pain management as scheduled. Rest as needed. Return to the emergency department with any new, worsening, or concerning symptoms. Prescriptions: oxyCODONE-APAP 10-325MG [Percocet 10-325 mg] 1 tab PO Q6HR PRN 3 Days #12 tab PRN Reason: Pain Is patient prescribed a controlled substance at d/c from ED?: Yes When asked, does pt state using other controlled substances?: Yes If prescribed controlled substance>3 days was MAPS reviewed?: Prescribed <3 Days If opioid is for acute pain is fill amount 7 days or less?: Yes If Rx opioid, was Start Talking consent form obtained?: Yes Referrals: Toño Potter MD [Primary Care Provider] - 1-2 days Time of Disposition: 22:25
[2022-04-04 22:45] VITALS: BP 135/91; PULSE 83; RESP 16; TEMP 98.6
== END 2022-04-04 22:47 | disposition home or self-care (01) ==
LOC: EC 19:23
DX: G89.29 Other chronic pain (principal); M54.50 Low back pain, unspecified; F17.200 Nicotine dependence, unspecified, uncomplicated; E11.9 Type 2 diabetes mellitus without complications; I10 Essential (primary) hypertension; K21.9 Gastro-esophageal reflux disease without esophagitis; E78.5 Hyperlipidemia, unspecified; M79.7 Fibromyalgia; Z79.899 Other long term (current) drug therapy; Z88.6 Allergy status to analgesic agent; Z88.8 Allergy status to other drugs, medicaments and biological substances; Z91.040 Latex allergy status; Z88.0 Allergy status to penicillin; Z88.1 Allergy status to other antibiotic agents; Z79.84 Long term (current) use of oral hypoglycemic drugs
CPT/HCPCS: 72100; 73502; 99283; 96372; J1170

== ENCOUNTER → 2023-04-25 | Outpatient (CLI) | payer MEDICARE, OTHER ==
--- NOTE | 2023-04-25 16:04 | US ---
EXAMINATION TYPE: US thyroid st tissue head/neck DATE OF EXAM: 04/25/2023 COMPARISON: NONE CLINICAL INDICATION: Female, 47 years old with history of N13.30; hypothyroidism, on synthroid x 15 y ears, patient felt lump rt neck about 1 month ago GLAND SIZE: Right Lobe: 5.4x1.8x1.9 cm Overall Parenchyma: heterogenous Left Lobe: 5.4x2.1x1.9 cm Overall Parenchyma: heterogenous Isthmus Thickness: 0.4 cm NODULES RIGHT: # of nodules measured on right: 1 1. 1.8 X 1.6 x 1.6 cm, mid mid, solid or almost completely solid, hypoechoic nodule, which is wider than tall, with smooth margins, without echogenic foci. TR 4. LEFT: # of nodules measured on left: 2 1. 1.5 X 0.9 x 1.2 cm, mid mid, solid or almost completely solid, hypoechoic nodule, which is wider than tall, with smooth margins, without echogenic foci. TR 4. 2. 1.1 X 0.8 x 1.2 cm, lower mid, solid or almost completely solid, isoechoic nodule, which is wid er than tall, with smooth margins, without echogenic foci. TR 3. ISTHMUS: # of nodules measured in the isthmus: 0 Bilateral neck scanned, no evidence of lymphadenopathy. IMPRESSION: Diffusely heterogenous mildly prominent thyroid gland with bilateral nodules. Right thyroid lobe TR 4 - 1.8 cm nodule demonstrated. Recommend fine-needle aspiration. Additional follow-up ultrasound in o ne year is recommended.
[2023-04-26 03:40] LABS: Basophils # (A) 0.06 X 10*3/uL (0.00-0.10); Basophils % (A) 0.6 %; Eosinophils # (A) 0.15 X 10*3/uL (0.04-0.35); Eosinophils % (A) 1.6 %; HCT 45.6 % (37.2-46.3); HGB 14.9 d/dL (12.0-15.0); Lymphocytes # (A) 2.02 X 10*3/uL (0.90-5.00); Lymphocytes % (A) 21.7 %; MCH 28.6 pg (27.0-32.0); MCHC 32.7 d/dL (32.0-37.0); MCV 87.5 FL (80.0-97.0); Mean Platelet Volume 10.7 FL (9.5-12.2); Monocytes # (A) 0.59 X 10*3/uL (0.20-1.00); Monocytes % (A) 6.3 %; NRBC Per 100 WBC 0 X 10*3/uL (0.00-0.01); Neutrophils # (A) 6.46 X 10*3/uL (1.80-7.70); Neutrophils % (A) 69.5 %; Platelet Count 325 X 10*3/uL (140-440); RBC 5.21 X 10*6/uL (4.10-5.20); RDW 14.1 % (11.5-14.5); WBC 9.31 X 10*3/uL (4.50-10.00)
[2023-04-26 03:53] LABS: ALT 21 U/L (8-44); AST 22 U/L (13-35); Albumin 4.2 d/dL (3.8-4.9); Albumin/Globulin Ratio 1.68 Ratio (1.60-3.17); Alkaline Phosphatase 56 U/L (41-126); BUN/Creat Ratio 15.25 Ratio (12.00-20.00); Blood Urea Nitrogen 12.2 mg/dL (9.0-27.0); Calcium 9.7 mg/dL (8.7-10.3); Chloride 103 mmol/L (96-109); Chol/HDL Ratio 6.15 Ratio; Globulin 2.5 d/dL (1.6-3.3); Glucose 155 mg/dL (70-110); LDL Cholesterol,Calculated 97.4 mg/dL (0.0-131.0); Magnesium 1.8 mg/dL (1.5-2.4); Sodium 139 mmol/L (135-145); T4, Free (Free Thyroxine) 1.11 ng/dL (0.80-1.80); Total Bilirubin <0.2 mg/dL (0.3-1.2); Total Protein 6.7 d/dL (6.2-8.2)
== END | disposition home or self-care (01) ==
LOC: RADUSWWP 15:08
PROVIDERS: ATTEND Internal Medicine
DX: E03.9 Hypothyroidism, unspecified (principal); E04.2 Nontoxic multinodular goiter; E11.9 Type 2 diabetes mellitus without complications
CPT/HCPCS: 76536; 80053; 80061; 83036; 83735; 84439; 84443; 85025; 86803

== ENCOUNTER → 2023-04-25 | Outpatient (CLI) | payer MEDICARE, OTHER ==
--- NOTE | 2023-04-26 08:54 | XR ---
EXAMINATION TYPE: XR ankle complete LT DATE OF EXAM: 04/25/2023 COMPARISON: NONE HISTORY: Pain FINDINGS: Three views of the ankle demonstrate the ankle mortise to be intact and symmetric. The joint spaces are preserved. The osseous structures are intact. Large calcaneal spurs are noted. Tiny bony densit y adjacent to the medial malleolus appears well-corticated. A punctate density adjacent to the latera l malleolus to small characterize. There is a deformity along the anterior margin tibia IMPRESSION: 1. No definite acute fracture or dislocation, if symptoms persist follow-up study in 7 to 10 days wou ld be suggested. There are two small ossified densities one adjacent to the lateral margin of the calcaneus laterally and a second along the anterior margin tibia which are most likely chronic but to small to characteri ze. Correlate with point tenderness to exclude tiny avulsion fracture. 2. Calcaneal spurs.
--- NOTE | 2023-04-26 09:17 | XR ---
EXAMINATION TYPE: XR foot complete LT DATE OF EXAM: 04/25/2023 COMPARISON: NONE HISTORY: Pain TECHNIQUE: Three views are submitted. FINDINGS: The osseous structures are intact. There is no acute fracture or dislocation. [id number] fir st MTP arthropathy. Large spurs involving the calcaneus.. IMPRESSION: 1. No acute fracture or dislocation. If symptoms persist, follow-up exam in 7 to 10 days could be ob tained. 2. Calcaneal spurs. 3. First MTP joint arthropathy.
== END | disposition home or self-care (01) ==
LOC: RADXRMAIN 16:18
PROVIDERS: ATTEND Internal Medicine
DX: M19.072 Primary osteoarthritis, left ankle and foot (principal); M77.32 Calcaneal spur, left foot

== ENCOUNTER 2023-05-10 13:17 | Day surgery (SDC) | payer MEDICARE, OTHER ==
[2023-05-10] MEDS ORDERED: ALPRAZolam 0.5 MG TAB PO STA (13:36)
--- NOTE | 2023-05-10 14:39 | US ---
ULTRASOUND GUIDED FNA THYROID BIOPSY: CLINICAL HISTORY: Right and left thyroid nodule FINDINGS: The procedure was explained to the patient. The risks, complications, benefits and alternatives were discussed and any questions were answered. Informed consent was obtained. Patient was placed supin e on the ultrasound table and prepped and draped in the usual sterile fashion. Utilizing a 25 gauge needle, five passes were made into the requested right and left thyroid nodule. Patient was stable throughout the procedure. Pathology is pending. All elements of maximal barrier technique were utilized. IMPRESSION: 1. Successful ultrasound guided FNA thyroid biopsy.
[2023-05-10 15:00] VITALS: TEMP 97.7
[2023-05-10 15:01] VITALS: BP 165/73; PULSE 84; RESP 16
== END 2023-05-10 14:40 | disposition home or self-care (01) ==
LOC: RADPROMAIN 13:17
PROVIDERS: ATTEND Internal Medicine
DX: E04.1 Nontoxic single thyroid nodule (principal)
CPT/HCPCS: 10005; 88173; 88305

== ENCOUNTER → 2023-05-31 | Outpatient (CLI) | payer MEDICARE, OTHER ==
[2023-05-31 16:06] VITALS: BP 132/84; PULSE 86; RESP 17; TEMP 98.3
--- NOTE | 2023-05-31 17:13 | P.HPOB ---
History of Present Illness H&P Date: 05/31/23 Chief Complaint: The patient is here for her routine gynecologic exam and ma mmogram. This is a 47-year-old G0 with an LMP of 2017. The patient is here to reestablish with this office. She was last seen in 2016. At that time she was referred to Dr. Conklin and had an endometrial ablation for hypermenorrhea in 2017. She has been amenorrheic since then. She has been experiencing feeling very hot constantly. She does not describe them as hot flashes. Her hat finisher started her on Prempro which has not helped with this constant heat. She thinks the hat finisher may stop the HRT since it is not helping. She is without gynecologic complaints. Review of Systems She states she has lost 51 pounds over the past year. She has been trying to do this with diet and regular exercise. She is down about 19 pounds since 2017 when she was last seen here. She denies respiratory or cardiac problems. GI: Occasional IBS-C symptoms. Past Medical History Past Medical History: Cancer, Diabetes Mellitus, Fibromyalgia, GERD/Reflux, Hyperlipidemia, Hypertension, Osteoarthritis (OA), Thyroid Disorder Additional Past Medical History / Comment(s): IBS-C, DDD, Osteomyelitis & hx. of Migraines. 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 Seasonal ALLERGIES. Thyroid nodules currently being worked up. Hypothyroidism. Chronic back problems. Paget's disease of the bone. Fibromyalgia. PAST S[employer]IOR [employer]ER HISTORY: She has no history of STDs. Long-standing primary infertility. History of Any Multi-Drug Resistant Organisms: None Reported Past Surgical History: Back Surgery, Orthopedic Surgery, Uterine Ablation Additional Past Surgical History / Comment(s): L leg surgery. Endometrial ablation 2016. Colonoscopy June 2022(next after 1yr). Thyroid biopsy. Past Anesthesia/Blood Transfusion Reactions: Family History of Problems w/ Anesthesia, Postoperative Nausea & Vomiting (PONV) Additional Past Anesthesia/Blood Transfusion Reaction / Comment(s): Hard to wake up, mom has PONV Past Psychological History: No Psychological Hx Reported (PHQ-2 questionaire was given and she scores 0. This is a negative screen for depression.) Smoking Status: Current every day smoker (Three quarters of a pack of cigarettes per day.) Past Alcohol Use History: Rare (8-10 drinks per year.) Additional Past Alcohol Use History / Comment(s): Smokes 1 PPD since age 12. Past Drug Use History: Marijuana (Rare marijuana use.) Additional Drug Use History / Comment(s): uses marijuana rarely Additional History: She has been a since 2018 and has been with her fianc since 2020. They plan to get on 07/05/2024. 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 - Past Family History Mother Family Medical History: No Reported History, Renal Disease Additional Family Medical History / Comment(s): Renal failure and heart disease. Father Family Medical History: Diabetes Mellitus, Hypertension Medications and Allergies Home Medications and Allergies Comment(s): Prempro 0.3/1.5 by mouth daily. Home Medications Medication Instructions Recorded Confirmed Type Furosemide [Lasix] 80 mg PO BID 06/15/17 05/31/23 History Loratadine [Claritin] 10 mg PO DAILY 06/15/17 05/31/23 History Potassium Chloride [Klor-Con 20] 20 meq PO DAILY 06/15/17 05/31/23 History Simvastatin 40 mg PO HS 06/15/17 05/31/23 History Cholecalciferol [Vitamin D3 (25 125 mcg PO AC-SUPPER 10/08/20 05/31/23 History Mcg = 1000 Iu)] Gabapentin 300 mg PO TID 10/08/20 05/31/23 History Levothyroxine Sodium [Synthroid] 50 mcg PO DAILY 10/08/20 05/31/23 History diazePAM [Valium] 10 mg PO TID PRN 10/08/20 05/31/23 History glipiZIDE XL [Glucotrol Xl] 10 mg PO AC-SUPPER 10/08/20 05/31/23 History oxyCODONE-APAP 10-325MG [Percocet 1 tab PO QID PRN 10/08/20 05/31/23 History 10-325 mg] sitaGLIPtin PHOS/metFORMIN HCL 1 tab PO BID 10/08/20 05/31/23 History [Janumet Xr 100-1,000 mg Tablet] Omeprazole [PriLOSEC] 40 mg PO HS 05/10/23 05/31/23 History Estrogen,Con/M-Progest Acet 1 each PO DAILY 05/31/23 05/31/23 History [Prempro 0.3 mg-1.5 mg Tablet] Allergies Allergy/AdvReac Type Severity Reaction Status Date / Time JACK Inhibitors Allergy Anaphylaxis Verified 05/31/23 15:50 aspirin Allergy Rash/Hives Verified 05/31/23 15:50 cephalexin [From Keflex] Allergy Rapid Verified 05/31/23 15:50 Heart Rate clarithromycin [From Biaxin] Allergy Rash/Hives Verified 05/31/23 15:50 latex Allergy Rash/Hives Verified 05/31/23 15:50 metoclopramide [From Reglan] Allergy Anaphylaxis Verified 05/31/23 15:50 Penicillins Allergy Rash/Hives Verified 05/31/23 15:50 sulfamethoxazole Allergy Rash/Hives Verified 05/31/23 15:50 [From Bactrim] trimethoprim [From Bactrim] Allergy Rash/Hives Verified 05/31/23 15:50 Exam Vital Signs Temp Pulse Resp BP Pulse Ox 05/31/23 15:50 98.3 F 86 17 132/84 96 Intake and Output 05/31/23 05/31/23 05/31/23 06:59 14:59 22:59 Other: Weight 123.377 kg Height 5 feet 2 inches, weight 272 pounds, BMI 49.7. This is a well-developed well-nourished heavyset white female who is alert and oriented times 3 in no acute distress. HEENT: Within normal limits. NECK: Supple without mass or thyromegaly. CHEST AND LUNGS: Clear to auscultation. HEART: Regular rate and rhythm. BREASTS: Are without mass or discharge. AXILLARY EXAM: Negative for adenopathy. BACK: Negative for CVA tenderness. ABDOMEN: Soft, obese, nontender, without palpable masses. PELVIC EXAM: Normal external genitalia. Cervix and vagina appear normal. There is no unusual discharge. There is no evidence of prolapse. The uterus is midposition, nongravid size and nontender. There are no palpable adnexal masses or tenderness. RECTAL EXAM: negative for mass or tenderness and is negative for occult blood. Bimanual examination is somewhat limited secondary to her size. EXTREMITIES: Nontender. IMPRESSION: 1. 47-year-old perimenopausal female status post endometrial ablation with resulting amenorrhea, with normal gynecologic exam. 2. The patient states she constantly feels hot. This is not typical for menopausal vasomotor symptoms and other possible causes should be considered including thyroid dysfunction. 3. Multiple medical problems. PLAN: 1. Pap smear cotest was performed. 2. Self breast awareness was discussed with the patient. We have also discussed symptoms associated with inflammatory breast cancer. 3. Screening mammogram was done today. 4. We had a long discussion regarding her HRT. We've discussed possible risks of HRT including possible increased risk for heart attack, stroke, and breast cancer. She states she believes her hat finisher will be discontinuing the HRT since it is not helping with her hot feelings. She is currently undergoing a workup for thyroid nodules. We have discussed how hormone blood tests could be done to see if she truly is menopausal, but they would need to be done while she is off of HRT. This testing could include FSH and estradiol. She will discuss this with her hat finisher. 5. Osteoporosis prevention was discussed. I have stressed the importance of adequate calcium, vitamin D and regular exercise. Recommended amounts of calcium and vitamin D were also discussed. 6.PHQ-2 questionaire was given and she scores 0. This is a negative screen for depression. 7. She was advised to return in one year for her annual well woman exam and as needed.
--- NOTE | 2023-06-02 09:33 | MM ---
Reason for Exam: Screening (asymptomatic). Last mammogram was performed 3 year(s) and 0 month(s) ago. Patient History: Menarche at age 9. Patient has no children. Postmenopausal. Currently using Estrogen. Currently using Progesterone. Risk Values: Siobhan 5 year model risk: 1.1%. NCI Lifetime model risk: 11.3%. Prior Study Comparison: 10/22/2016 Bilateral Screening Mammogram, [facility]ED WITH [facility]. 11/20/2018 Bilateral Screening Mammogram, [facility]ED WITH [facility]. 05/28/2020 Bilateral Screening Mammogram, MERGED WITH [facility]. Tissue Density: There are scattered fibroglandular densities. Findings: Analyzed By CAD. There is no suspicious group of microcalcifications or new suspicious mass in either breast. Overall Assessment: Benign, BI-RAD 2 Management: Screening Mammogram of both breasts in 1 year. . Patient should continue monthly self-breast exams. A clinical breast exam by your physician is recommended on an annual basis. This exam should not preclude additional follow-up of suspicious palpable abnormalities. Note on Siobhan scores and lifetime risk: 1. A Siobhan score greater than 3% is considered moderate risk. If this is the case, consider specialist referral to assess eligibility for a risk reducing agent. 2. If overall lifetime risk for the development of breast cancer is 20% or higher, the patient may qualify for future screening with alternating mammogram and breast MRI. Electronically signed and approved by: Kendrick Dewitt M.D. Radiologis
== END ==
LOC: WWCWWP 15:02
PROVIDERS: ATTEND Obstetrics & Gynecology
DX: Z01.419 Encounter for gynecological examination (general) (routine) without abnormal findings (principal); E03.9 Hypothyroidism, unspecified; E11.9 Type 2 diabetes mellitus without complications; E78.5 Hyperlipidemia, unspecified; F17.210 Nicotine dependence, cigarettes, uncomplicated; I10 Essential (primary) hypertension; K21.9 Gastro-esophageal reflux disease without esophagitis; K58.9 Irritable bowel syndrome, unspecified; M19.90 Unspecified osteoarthritis, unspecified site; M51.9 Unspecified thoracic, thoracolumbar and lumbosacral intervertebral disc disorder; M79.7 Fibromyalgia; Z79.84 Long term (current) use of oral hypoglycemic drugs; Z79.890 Hormone replacement therapy; Z88.0 Allergy status to penicillin; Z12.31 Encounter for screening mammogram for malignant neoplasm of breast; Z88.1 Allergy status to other antibiotic agents; Z88.2 Allergy status to sulfonamides; Z88.8 Allergy status to other drugs, medicaments and biological substances; Z91.040 Latex allergy status; Z88.6 Allergy status to analgesic agent; Z79.899 Other long term (current) drug therapy; Z78.0 Asymptomatic menopausal state
CPT/HCPCS: 77063; 77067

== ENCOUNTER → 2023-11-02 | Outpatient (CLI) | payer MEDICARE, OTHER ==
[2023-11-02 16:54] LABS: ALT 23 U/L (8-44); AST 19 U/L (13-35); Albumin 4.1 g/dL (3.8-4.9); Albumin/Globulin Ratio 1.71 Ratio (1.60-3.17); Alkaline Phosphatase 54 U/L (41-126); BUN/Creat Ratio 18.38 Ratio (12.00-20.00); Blood Urea Nitrogen 14.7 mg/dL (9.0-27.0); Calcium 9.9 mg/dL (8.7-10.3); Chloride 101 mmol/L (96-109); Chol/HDL Ratio 4.13 Ratio; Globulin 2.4 g/dL (1.6-3.3); Glucose 265 mg/dL (70-110); LDL Cholesterol,Calculated 69.2 mg/dL (0.0-131.0); Potassium 4.4 mmol/L (3.5-5.5); Sodium 141 mmol/L (135-145); Total Bilirubin <0.2 mg/dL (0.3-1.2); Total Protein 6.5 g/dL (6.2-8.2)
== END | disposition home or self-care (01) ==
LOC: LABWHC1 11:38
PROVIDERS: ATTEND Internal Medicine
DX: E11.65 Type 2 diabetes mellitus with hyperglycemia (principal); M88.88 Osteitis deformans of other bones; E55.9 Vitamin D deficiency, unspecified
CPT/HCPCS: 36415; 80053; 80061; 82043; 82306; 82523; 82570; 83036

== ENCOUNTER → 2024-08-28 | Outpatient (CLI) | payer MEDICARE, OTHER ==
--- NOTE | 2024-08-29 09:50 | MR ---
EXAMINATION TYPE: MR abdomen wo/w con DATE OF EXAM: 08/28/2024 9:43 AM COMPARISON: CT scan abdomen from 08/22/2024. CLINICAL INDICATION: Female, 48 years old with history of R14.0 ABDOMINAL DISTENSION (GASEOUS) R10.84 ABD PA; PHH, Rt side and back pain, distention TECHNIQUE: Multiplanar multi-sequence imaging was performed without contrast. Post contrast imaging was performed. Post IV contrast subtraction images were also submitted for review. IV Contrast: 11 mL Gadobutrol FINDINGS: LOWER CHEST: No gross irregularity. ABDOMEN Liver: No evidence for cirrhosis. Signal dropout on chemical shift out of phase imaging. Gallbladder and Bile ducts: No evidence for ductal dilation, or biliary stricture or evidence of chol edocholithiasis. The gallbladder is within normal limits. Pancreas: No ductal dilation. No evidence for solid mass. Spleen: Normal for size. Adrenal glands: Unremarkable. Kidneys: No evidence for obstructive uropathy. No suspicious renal masses. Simple appearing high T2 s ignal left renal cyst. Stomach and Bowel: No evidence for bowel wall thickening or evidence for obstruction. Retroperitoneum/Peritoneum: No evidence of pneumoperitoneum or free fluid. Vasculature: No aortic aneurysm. Musculoskeletal: The osseous structures appear intact. Lymph Nodes: No gross evidence for lymphadenopathy. Abdominal wall: Posterior right back probable sebaceous cyst which is high T2 signal adjacent to the epididymis measuring 13 mm. IMPRESSION: 1. No evidence for acute abdominal process. 2. Hepatic steatosis. 3. Posterior right back probable sebaceous cyst measuring up to 13 mm. 4. Left simple appearing Bosniak type I renal cyst. [facility], , 08/29/2024 9:48 AM
== END | disposition home or self-care (01) ==
LOC: RADMRIMAIN 08:14
PROVIDERS: ATTEND Internal Medicine
DX: R10.84 Generalized abdominal pain (principal); K76.0 Fatty (change of) liver, not elsewhere classified; N28.1 Cyst of kidney, acquired; M54.9 Dorsalgia, unspecified
CPT/HCPCS: 74183; A9585

== ENCOUNTER → 2024-10-15 | Outpatient (CLI) | payer MEDICARE, OTHER ==
--- NOTE | 2024-10-16 07:26 | US ---
EXAMINATION TYPE: US thyroid st tissue head/neck DATE OF EXAM: 10/15/2024 COMPARISON: CLINICAL INDICATION: Female, 48 years old with history of E04.1 THY NODULE; Follow up thyroid nodule. Patient states she is doing thyroid radiation. On thyroid meds. TECHNIQUE: Grayscale and color Doppler imaging of the thyroid gland. FINDINGS: GLAND SIZE: Right Lobe: 3.2 x 2.0 x 1.6 cm Overall Parenchyma: heterogeneous Left Lobe: 3.7 x 2.0 x 1.8 cm Overall Parenchyma: heterogeneous Isthmus Thickness: 0.3 cm NODULES- largest measured RIGHT: # of nodules measured on right: 2 1. 1.8 X 1.2 x 1.5 cm, mid lateral, solid or almost completely solid, hypoechoic nodule, which is taller than wide, with smooth margins, without echogenic foci. TR 4. Prior size: 1.8 x 1.6 x 1.6 cm 2. 0.6 X 0.6 x 0.4 cm, lower medial, solid or almost completely solid, hypoechoic nodule, which is wider than tall, with smooth margins, without echogenic foci. Prior size: Not measured previously LEFT: # of nodules measured on left: 2 1. 1.3 X 1.0 x 0.8 cm, mid mid, solid or almost completely solid, isoechoic nodule, which is wider than tall, with smooth margins, without echogenic foci. TR 4. Prior size: 1.5 x 0.9 x 1.2 cm 2. 1.0 X 1.0 x 0.8 cm, lower mid, solid or almost completely solid, isoechoic nodule, which is wid er than tall, with smooth margins, without echogenic foci. Prior size: 1.1 x 0.8 x 1.2 cm ISTHMUS: # of nodules measured in the isthmus: 0 Bilateral neck scanned, no evidence of lymphadenopathy. Thyroid nodules previously biopsied. IMPRESSION: Moderately suspicious bilateral thyroid lobe nodules. No suspicious interval change. 2017 ACR TI-RADS LEVEL: TR-RADS 4 - Moderately Suspicious: Follow if > 1 cm, FNA if > 1.5 cm *Highest TI-RADS level nodule reported [email or web address] [facility], , 10/16/2024 7:24 AM
== END | disposition home or self-care (01) ==
LOC: RADUSWWP 16:06
PROVIDERS: ATTEND Internal Medicine
DX: E04.1 Nontoxic single thyroid nodule (principal); R21 Rash and other nonspecific skin eruption; Z79.890 Hormone replacement therapy
CPT/HCPCS: 76536

== ENCOUNTER → 2024-10-15 | Outpatient (CLI) | payer MEDICARE, OTHER ==
--- NOTE | 2024-10-16 06:57 | MM ---
Reason for Exam: Screening (asymptomatic). Last mammogram was performed 1 year(s) and 5 month(s) ago. Patient History: Menarche at age 9. Patient has no children. Postmenopausal. Used Estrogen. Used Progesterone. Risk Values: Siobhan 5 year model risk: 1.1%. NCI Lifetime model risk: 11.1%. Prior Study Comparison: 11/20/2018 Bilateral Screening Mammogram, [facility]. 05/28/2020 Bilateral Screening Mammogram, [facility]. 05/31/2023 Bilateral MG 3D screening mammo w/cad, [facility]. Tissue Density: There are scattered areas of fibroglandular density. Findings: Analyzed By CAD. There are scattered small benign-appearing round calcifications redemonstrated throughout the bilateral breasts. There is no suspicious group of microcalcifications or new suspicious mass in either breast. Overall Assessment: Benign, BI-RAD 2 Management: Screening Mammogram of both breasts in 1 year. . Patient should continue monthly self-breast exams. A clinical breast exam by your physician is recommended on an annual basis. This exam should not preclude additional follow-up of suspicious palpable abnormalities. Note on Siobhan scores and lifetime risk: 1. A Siobhan score greater than 3% is considered moderate risk. If this is the case, consider specialist referral to assess eligibility for a risk reducing agent. 2. If overall lifetime risk for the development of breast cancer is 20% or higher, the patient may qualify for future screening with alternating mammogram and breast MRI. [facility], , 10/16/2024 6:54 AM. Electronically signed and approved by: Derian Hylton M.D.
== END | disposition home or self-care (01) ==
LOC: RADMAMWWP 16:03
PROVIDERS: ATTEND Internal Medicine
DX: Z12.31 Encounter for screening mammogram for malignant neoplasm of breast (principal); R92.323 Mammographic fibroglandular density, bilateral breasts; Z78.0 Asymptomatic menopausal state
CPT/HCPCS: 77063; 77067